=== PATIENT | female | born 1970 | race Caucasian/White ===

== ENCOUNTER 2019-01-01 10:48 | Emergency (ER) | payer OTHER ==
[~2019-01-01] VITALS: Ht 165.1 cm; Wt 68.0 kg
[2019-01-01 10:53] VITALS: Ht 165.1 cm; Wt 68.0 kg
[2019-01-01 11:51] LABS: BASOPHIL % 0.2 % (0-2); PLATELET COUNT 306 x10^3mcL (130-400); RED CELL DISTRIBUTION WIDTH 14.3 % (11.5-14.5)
[2019-01-01 12:06] LABS: CALCIUM 8.8 mg/dL (8.5-10.1); CARBON DIOXIDE 27.6 mmol/L (21-32); CHLORIDE SERUM 101 mmol/L (98-107); CREATININE SERUM 0.7 mg/dL (0.6-1.0); GFR1 > 60 mL/min; GLUCOSE SERUM 370 mg/dL (74-106); POTASSIUM SERUM 4.3 mmol/L (3.5-5.1); SODIUM SERUM 137 mmol/L (136-145)
[2019-01-01 12:11] LABS: ALBUMIN 3.6 g/dL (3.4-5.0); ALKALINE PHOSPHATASE 73 U/L (46-116); ALT/SGPT 19 U/L (14-59); AST/SGOT 9 U/L (15-37); BILIRUBIN TOTAL 0.33 mg/dL (0.20-1.00); TOTAL PROTEIN, SERUM 7.3 g/dL (6.4-8.2)
[2019-01-01 14:29] VITALS: BP 105/61
== END 2019-01-01 14:29 | disposition home or self-care (01) ==
LOC: ED 10:48
PROVIDERS: Emergency Medicine
DX: E11.65 Type 2 diabetes mellitus with hyperglycemia (principal); E86.0 Dehydration; R42 Dizziness and giddiness
CPT/HCPCS: 82962; J2765; J7030